=== PATIENT | female | born 1985 | race Caucasian/White ===

== ENCOUNTER → 2017-12-26 | Outpatient (CLI) | payer BC | LOC: M RAD 15:58 | DX: R51 Headache (principal); J32.0 Chronic maxillary sinusitis | CPT/HCPCS: 70486 ==

== ENCOUNTER → 2018-11-24 | Outpatient (REF) | payer BC | LOC: M LAB LCGH 11:39 | PROVIDERS: ATTEND Family Medicine | DX: Z01.419 Encounter for gynecological examination (general) (routine) without abnormal findings (principal) ==